=== PATIENT | male | born 1980 | race Caucasian/White ===

== ENCOUNTER 2017-10-18 22:05 | Emergency (ER) | payer SELFPAY ==
[~2017-10-18 22:05] MED LIST: ACE325 PO; ALB0.5 INH; ALB17R INH; ALBU2.5V36 INH; BACDS PO; CEP500 PO; CETI10CA8 PO; CIPR-214 PO; CLI150 PO; CLIN300C99 PO; CODE118S5 PO; CYC10 PO; DIAZ-1 PO; FAMO-67 PO; FLUINH INH; FLUT12HF2 IH; FLUT1DIS28 IH; HYDR-318 PO; HYDR-4308 PO; HYDR-4309 PO; IBU800 PO; IBUP200C71 PO; IBUP50TA PO; IBUP800T37 PO; LOR5 PO; LOR5/325 PO; METH4TAB66 PO; MULT-1335 PO; PER PO; PHEN200T32 PO; PRE20 PO; PRED20TA6 PO; SULF-198 PO; TIO18R INH; TRAM-420 PO; [UNRECOGNIZED DRUG - CODE] PO
--- NOTE | 2017-10-18 22:09 | ER Report ---
History and Physical Time Seen By MD: 22:09 HPI/ROS CHIEF COMPLAINT: Requesting detox HISTORY OF PRESENT ILLNESS: 37-year-old male with a history of alcoholism. Patient states she's been drinking a 5th a day for several weeks. Tonight he presents voluntarily requesting detox. He admits to. I'll put her and blackouts. Patient reports last alcohol ingestion was 2 hours prior to arrival. Patient reports she's been drinking heavily for 5 years. Patient denies suicidal ideation. Patient reports a history of asthma REVIEW OF SYSTEMS: Respiratory: No cough, no dyspnea. Cardiovascular: No chest pain, no palpitations. Gastrointestinal: No vomiting, no abdominal pain. Musculoskeletal: No back pain. Allergies: Coded Allergies: Penicillins (Verified Allergy, Mild, 10/18/17) Home Meds Reported Medications Montelukast Sodium (SINGULAIR) 10 Mg Tablet, 1 TAB PO QDAY, TAB 10/18/17 Albuterol Sulfate 0.083% (ALBUTEROL SULFATE 0.083%) 2.5 Mg/3 Ml Vial.neb, 2.5 MG INH 4-5X/DAY, INH 10/31/15 Fluticasone/Salmeterol (ADVAIR HFA 115-21 MCG INHALER) 12 Gm Hfa.aer.ad, 12 GM IH PRN 10/31/15 Albuterol (Proventil Inhaler) 17 Gm Inh, 0 INH QID Y, 0 Refills 1-2 PUFFS 04/02/08 Discontinued Reported Medications Cetirizine Hcl (ZYRTEC) 10 Mg Capsule, 10 MG PO QDAY, CAPSULE 10/19/15 Past Medical/Surgical History Asthma, bilateral subdural status post craniotomy Reviewed Nurses Notes: Yes Old Medical Records Reviewed: Yes Hx Smoking: Yes (SMOKES 1/2 PPD FOR 20 YEARS) Smoking Status: Current: Every Day Smoker Exposure to Second Hand Smoke?: Yes Hx Substance Use Disorder: Yes (pot, meth occ) Hx Alcohol Use: Yes (" not that much") Constitutional Vital Sign - Last 24 Hours 10/18/17 10/18/17 10/18/17 10/18/17 22:12 22:20 22:23 22:30 Temp 97.8 Pulse 70 ??? Resp 16 B/P (MAP) 137/98 131/86 (101) Pulse Ox 90 91 O2 Delivery Room Air O2 Flow Rate 2.0 10/18/17 10/18/17 10/18/17 10/18/17 22:35 22:43 22:50 23:00 Pulse 71 60 68 Resp 16 B/P (MAP) 118/79 (92) Pulse Ox 86 96 10/18/17 10/18/17 23:05 23:20 Pulse 75 64 Pulse Ox 96 96 Physical Exam General Appearance: The patient is alert, has no immediate need for airway protection and no current signs of toxicity. Eyes: Pupils equal and round no injection. Respiratory: Chest is non tender, lungs are clear to auscultation. Cardiac: regular rate and rhythm Gastrointestinal: Abdomen is soft and non tender, no masses, bowel sounds normal. Musculoskeletal: Neck: Neck is supple and non tender. Extremities have full range of motion and are non tender. Skin: No rashes or lesions. DIFFERENTIAL DIAGNOSIS: After history and physical exam differential diagnosis was considered for depression including functional and major depression, situational depression, medication side effect, drugs and alcohol abuse. Medical Decision Making Data Points Result Diagram: 10/18/173 10/18/17 222 Laboratory Hematology Test 10/18/17 22:09 10/18/17 22:23 Urine Color Yellow Urine Clarity Clear Urine pH 6.0 pH (4.8-9.5) Urine Specific [place] 1.021 Urine Protein 30 mg/dL (NEGATIVE) Urine Glucose (UA) Negative mg/dL (NEGATIVE) Urine Ketones Negative mg/dL (NEGATIVE) Urine Blood Negative (NEGATIVE) Urine Nitrite Negative (NEGATIVE) Urine Bilirubin Negative (NEGATIVE) Urine Urobilinogen 4.0 mg/dL (0.2-1.9) Urine Leukocyte Esterase Negative (NEGATIVE) Urine RBC None /HPF (0-2/HPF) Urine WBC 2 /HPF (0-5/HPF) Urine Squamous Epithelial Cells None /LPF (</=FEW) Urine Bacteria Negative /HPF (NONE-FEW) Urine Mucus Few /HPF (NONE-FEW) Urine Opiates Screen Negative Urine Barbiturates Screen Negative Ur Tricyclic Antidepressants Screen Negative Urine Phencyclidine Screen Negative Urine Amphetamines Screen Negative Urine Benzodiazepines Screen Negative Urine Cocaine Screen Negative Urine Cannabinoids Screen Positive Red Blood Count 5.14 M/uL (4.00-5.60) Mean Corpuscular Volume 91.0 fL (80.0-96.0) Mean Corpuscular Hemoglobin 32.1 pg (26.0-33.0) Mean Corpuscular Hemoglobin Concent 35.3 g/dL (32.0-36.0) Red Cell Distribution Width 14.2 % (11.5-14.5) Mean Platelet Volume 8.1 fL (7.2-11.1) Neutrophils (%) (Auto) 46.6 % (39.4-72.5) Lymphocytes (%) (Auto) 39.4 % (17.6-49.6) Monocytes (%) (Auto) 8.2 % (4.1-12.4) Eosinophils (%) (Auto) 5.2 % (0.4-6.7) Basophils (%) (Auto) 0.6 % (0.3-1.4) Nucleated RBC Relative Count (auto) 0.1 /100WBC Neutrophils # (Auto) 3.9 K/uL (2.0-7.4) Lymphocytes # (Auto) 3.3 K/uL (1.3-3.6) Monocytes # (Auto) 0.7 K/uL (0.3-1.0) Eosinophils # (Auto) 0.4 K/uL (0.0-0.5) Basophils # (Auto) 0.1 K/uL (0.0-0.1) Nucleated RBC Absolute Count (auto) 0.01 K/uL Sodium Level 144 mmol/L (137-145) Potassium Level 3.7 mmol/L (3.5-5.0) Chloride Level 103 mmol/L (98-107) Carbon Dioxide Level 23 mmol/L (22-30) Blood Urea Nitrogen 11 mg/dl (9-21) Creatinine 0.80 mg/dl (0.66-1.25) Glomerular Filtration Rate Calc > 60.0 Random Glucose 84 mg/dl (75-110) Calcium Level 8.9 mg/dl (8.4-10.2) Magnesium Level 2.0 mg/dl (1.7-2.2) Total Bilirubin 0.9 mg/dl (0.2-1.3) Aspartate Amino Transf (AST/SGOT) 123 U/L (0-35) Alanine Aminotransferase (ALT/SGPT) 87 U/L (0-56) Alkaline Phosphatase 60 U/L (0-126) Total Protein 8.1 g/dl (6.3-8.2) Albumin 4.8 g/dl (3.5-5.0) Salicylates Level < 10 mg/L Salicylate Last Dose Date unk Acetaminophen Level < 10 ug/ml Serum Alcohol 288 mg/dl Chemistry Test 10/18/17 22:09 10/18/17 22:23 Urine Color Yellow Urine Clarity Clear Urine pH 6.0 pH (4.8-9.5) Urine Specific [place] 1.021 Urine Protein 30 mg/dL (NEGATIVE) Urine Glucose (UA) Negative mg/dL (NEGATIVE) Urine Ketones Negative mg/dL (NEGATIVE) Urine Blood Negative (NEGATIVE) Urine Nitrite Negative (NEGATIVE) Urine Bilirubin Negative (NEGATIVE) Urine Urobilinogen 4.0 mg/dL (0.2-1.9) Urine Leukocyte Esterase Negative (NEGATIVE) Urine RBC None /HPF (0-2/HPF) Urine WBC 2 /HPF (0-5/HPF) Urine Squamous Epithelial Cells None /LPF (</=FEW) Urine Bacteria Negative /HPF (NONE-FEW) Urine Mucus Few /HPF (NONE-FEW) Urine Opiates Screen Negative Urine Barbiturates Screen Negative Ur Tricyclic Antidepressants Screen Negative Urine Phencyclidine Screen Negative Urine Amphetamines Screen Negative Urine Benzodiazepines Screen Negative Urine Cocaine Screen Negative Urine Cannabinoids Screen Positive White Blood Count 8.3 k/uL (4.5-11.0) Red Blood Count 5.14 M/uL (4.00-5.60) Hemoglobin 16.5 g/dL (14.0-18.0) Hematocrit 46.8 % (42.0-52.0) Mean Corpuscular Volume 91.0 fL (80.0-96.0) Mean Corpuscular Hemoglobin 32.1 pg (26.0-33.0) Mean Corpuscular Hemoglobin Concent 35.3 g/dL (32.0-36.0) Red Cell Distribution Width 14.2 % (11.5-14.5) Platelet Count 192 K/uL (150-450) Mean Platelet Volume 8.1 fL (7.2-11.1) Neutrophils (%) (Auto) 46.6 % (39.4-72.5) Lymphocytes (%) (Auto) 39.4 % (17.6-49.6) Monocytes (%) (Auto) 8.2 % (4.1-12.4) Eosinophils (%) (Auto) 5.2 % (0.4-6.7) Basophils (%) (Auto) 0.6 % (0.3-1.4) Nucleated RBC Relative Count (auto) 0.1 /100WBC Neutrophils # (Auto) 3.9 K/uL (2.0-7.4) Lymphocytes # (Auto) 3.3 K/uL (1.3-3.6) Monocytes # (Auto) 0.7 K/uL (0.3-1.0) Eosinophils # (Auto) 0.4 K/uL (0.0-0.5) Basophils # (Auto) 0.1 K/uL (0.0-0.1) Nucleated RBC Absolute Count (auto) 0.01 K/uL Glomerular Filtration Rate Calc > 60.0 Calcium Level 8.9 mg/dl (8.4-10.2) Magnesium Level 2.0 mg/dl (1.7-2.2) Total Bilirubin 0.9 mg/dl (0.2-1.3) Aspartate Amino Transf (AST/SGOT) 123 U/L (0-35) Alanine Aminotransferase (ALT/SGPT) 87 U/L (0-56) Alkaline Phosphatase 60 U/L (0-126) Total Protein 8.1 g/dl (6.3-8.2) Albumin 4.8 g/dl (3.5-5.0) Salicylates Level < 10 mg/L Salicylate Last Dose Date unk Acetaminophen Level < 10 ug/ml Serum Alcohol 288 mg/dl Toxicology Test 10/18/17 22:09 10/18/17 22:23 Urine Opiates Screen Negative Urine Barbiturates Screen Negative Ur Tricyclic Antidepressants Screen Negative Urine Phencyclidine Screen Negative Urine Amphetamines Screen Negative Urine Benzodiazepines Screen Negative Urine Cocaine Screen Negative Urine Cannabinoids Screen Positive Salicylates Level < 10 mg/L Salicylate Last Dose Date unk Acetaminophen Level < 10 ug/ml Serum Alcohol 288 mg/dl Urinalysis Test 10/18/17 22:09 Urine Color Yellow Urine Clarity Clear Urine pH 6.0 pH (4.8-9.5) Urine Specific [place] 1.021 Urine Protein 30 mg/dL (NEGATIVE) Urine Glucose (UA) Negative mg/dL (NEGATIVE) Urine Ketones Negative mg/dL (NEGATIVE) Urine Blood Negative (NEGATIVE) Urine Nitrite Negative (NEGATIVE) Urine Bilirubin Negative (NEGATIVE) Urine Urobilinogen 4.0 mg/dL (0.2-1.9) Urine Leukocyte Esterase Negative (NEGATIVE) Urine RBC None /HPF (0-2/HPF) Urine WBC 2 /HPF (0-5/HPF) Urine Squamous Epithelial Cells None /LPF (</=FEW) Urine Bacteria Negative /HPF (NONE-FEW) Urine Mucus Few /HPF (NONE-FEW) ED Course/Re-evaluation Clinical Indication for ER IV: Hydration, IV Access ED Course Patient was admitted to an examination room. H&P was done. The differential diagnoses was considered. On conical examination, patient appears grossly intoxicated. He is requesting detox. Patient states she's been drinking heavily for 5 years. He drinks approximately a 5th a day. Diagnostic studies show mild elevation of LFTs. His blood alcohol level 288. Case was discussed with behavioral health services information assurance. 10/18/2017 11:04:01 pm case discussed with Dr. Ponce psychiatrist on-call, who accepts the patient for admission to detox voluntarily Decision to Disposition Date: Oct 18, 2017 Decision to Disposition Time: 22:55 Depart Departure Latest Vital Signs Vital Signs Date Time Temp Pulse Resp B/P (MAP) Pulse Ox O2 Delivery O2 Flow Rate FiO2 10/18/17 23:20 64 96 10/18/17 23:00 118/79 (92) 10/18/17 22:43 16 10/18/17 22:23 2.0 10/18/17 22:12 97.8 Room Air Impression: Primary Impression: Alcohol dependence Additional Impressions: Asthma History of subdural hematoma Abnormal LFTs Condition: Improved Disposition: HOME OR SELF-CARE Problem Qualifiers Primary Impression: Alcohol dependence Substance use status: uncomplicated Qualified Codes: F10.20 - Alcohol dependence, uncomplicated Additional Impressions: Asthma Asthma severity: mild Asthma persistence: intermittent Asthma complication type: with acute exacerbation Qualified Codes: J45.21 - Mild intermittent asthma with (acute) exacerbation CARA FISHMAN DO Oct 18, 2017 22:09
[2017-10-18] MEDS ORDERED: MONT10TA PO (22:18)
[2017-10-18] MEDS ORDERED: THIAMINE HCL(*) 200 MG/2 ML IN 100 MG, FOLIC ACID(*) 50 MG/10 ML INJ 1 MG, MULTIVITAMIN... IV ONE (22:18)
[2017-10-18 22:30] LABS: PLATELET COUNT, AUTOMATED 192 K/uL (150-450)
[2017-10-18] MEDS ORDERED: ALBUTEROL/IPRATROPIUM 3 ML NEB NEB ONE (22:35)
[2017-10-18 23:00] VITALS: BP 118/79
== END 2017-10-18 23:28 | disposition home or self-care (01) ==
LOC: ER 22:13
DX: F10.20 Alcohol dependence, uncomplicated (principal); J45.21 Mild intermittent asthma with (acute) exacerbation
CPT/HCPCS: 80305; 80320; 80329; 81001; 83735; 84443; 85025; 94640; 96365; 99283; J3411; J3475; J7030; J7620; 82040; 82247; 82310; 82374; 82435; 82565; 82947; 84075; 84132; 84155; 84295; 84450; 84460; 84520

== ENCOUNTER 2017-10-18 23:24 | Inpatient (IN) | payer SELFPAY ==
[~2017-10-18] VITALS: Ht 167.6 cm; Wt 77.1 kg
[2017-10-18 23:10] VITALS: BP 122/85
[~2017-10-18 23:24] MED LIST changes: +MONT10TA PO
[2017-10-18 23:35] VITALS: BP 122/85
[2017-10-19] MEDS ORDERED: NICOTINE CARTRIDGE 1 EA PO PRN (00:10)
[2017-10-19] MEDS ORDERED: MAG HYD/AL HYD/SIMETH 30ML UDC PO PRN (00:10)
[2017-10-19] MEDS ORDERED: ALBUTEROL SULFATE 90 MCG/ACT 8.5 GM HNH INH PRN (00:15)
[2017-10-19] MEDS: DIAZEPAM 10 MG TAB PO PRN ×7 (00:30→20:42)
[2017-10-19] MEDS ORDERED: ADVAIR PO SCH (06:00)
[2017-10-19 07:50] VITALS: BP 113/74
[2017-10-19] MEDS: MONTELUKAST SODIUM 10 MG TAB PO SCH (08:19)
[2017-10-19] MEDS: MULTIVITAMINS TAB PO SCH (08:19)
[2017-10-19] MEDS: THIAMINE HCL 100 MG TAB PO SCH (08:19)
[2017-10-19] MEDS: ALBUTEROL 8 GM INHALER INH PRN ×2 (11:08→19:58)
[2017-10-19 11:53] VITALS: BP 138/95
[2017-10-19 14:45] VITALS: BP 122/98
--- NOTE | 2017-10-19 15:20 | SCHAAF H&P ---
DATE OF ADMISSION: October 18, 2017 DATE OF EVALUATION Patient was seen for note concerning this dictation in the morning of October 19, 2017, approximately 1000 hours. ATTENDING PHYSICIAN Aaron Ponce MD PRESENTING PROBLEM, CHIEF COMPLAINT "I want help with alcoholism." HISTORY OF PRESENT ILLNESS This is very pleasant 37-year-old male who presented to the emergency room on a voluntary basis, stating that he wants to get off of all alcohol. Patient reports he had been drinking a fifth at least a day for the last few weeks, and overall alcohol consumption continues to increase. Patient reports the fifth of hard liquor is in addition to "beers" that patient is drinking. Patient reports no specific stressors in his life other than frustration with ongoing alcohol use. Patient does report some financial stress, but he says this is even longstanding in nature and not acutely different. Patient denies any other symptoms of psychiatric concern at this time outside of the frustration with alcohol use disorder. MENTAL HEALTH HISTORY The patient reports that he has been in [facility] in the past and reported at one point during interview multiple residential rehabs, including "jail". Patient denies being on a unit for acute detox such as this, and patient has reported following up at [facility] in the past, although he is not now. Patient is not currently attending and does not have a sponsor. Patient denies any significant depressive thoughts that ever related in suicidal thoughts in his life. FAMILY PSYCHIATRIC HISTORY When asked who suffers from alcohol within the genetic family members, patient reports "my whole family" on both sides. Patient reports depression possibly on father's side. No suicides are known in the family history. PAST MEDICAL HISTORY Significant for some prematurity. Patient has ongoing asthma and likely bronchitis currently at time of admission. Patient has some environmental allergies. MEDICATIONS Not on any other medications other than inhaler for asthma symptoms. SOCIAL HISTORY The patient was born in [place], raised in [place]. Parents at the time of his . They when he was approximately age [age]. Siblings : Patient has one brother, who he reports is doing well. Patient did not graduate high school, obtained a GED, did not obtain any college. Patient reports no service. He has never . He has one daughter who lives in [place]. Patient reports living in [place], where he states he takes care of his mother. 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 Patient currently living with his mother here in [place]. LEGAL HISTORY Patient reports being in jail for marijuana distribution charge resulting in a felony of six years. Patient states he is currently not under any legal bounds. SUBSTANCE ABUSE HISTORY Patient smoking a half a pack of cigarettes currently daily. Patient reports being a heavy methamphetamine user in the past, including IV injection. Has been able to stop that for quite some time. Patient reports continued cannabis use, appears moderate in nature, and patient reports ongoing significant problems with alcoholism. PHYSICAL EXAMINATION Please see emergency room note. Notable for cooperative 37-year-old male, interacting well. Vital signs at the time of admission: Temperature 97.8, pulse 70, respiratory rate 16, blood pressure 137/98 and pulse oximetry 90on room air. Patient in no acute medical distress. LABORATORY DATA CBC notably unremarkable and chemistry panel notable for AST 123 and an ALT of 87, TSH 1.36. Urinalysis: Urobilinogen present with some protein present. Toxicology screen positive for cannabis and serum alcohol level of 288 upon admission. MENTAL STATUS EXAMINATION GENERAL APPEARANCE, BEHAVIOR AND ATTITUDE: This is a polite, cooperative 37- year-old male interacting well, making good eye contact. No bizarre mannerisms or tics. Some psychomotor agitation related to alcohol withdrawal, which is currently being treated during interview. Patient non-tearful. SPEECH: Within normal limits. Regular rate, rhythm, volume and tone. MOOD: Described as some frustration over alcoholism. AFFECT: Minimally constricted and mood-congruent. THOUGHT PROCESSES: Logical, goal-directed, no loose associations or flight of ideas. THOUGHT CONTENT: Free of auditory or visual hallucinations, ideas of reference , thought broadcastings, delusions, obsessions or compulsions. No suicidal or homicidal ideations. SENSORIUM: Clear. COGNITION: Alert and oriented to person, place, time and situation. MEMORY: Immediate, recent and remote estimated intact. INTELLIGENCE: Average, based on interview. INSIGHT AND JUDGMENT: Considered grossly intact. Patient presenting voluntarily for help with alcohol use disorder. ASSESSMENT This is a pleasant 37-year-old male voicing that he needs help withdrawing from alcohol. It is not likely patient will attend rehab program once alcohol withdrawal is complete. Efforts will be made to put in place outpatient services to ensure sobriety upon departure. Will treat alcohol withdrawal to completion with diazepam. DIAGNOSES PER DSM-V Alcohol use disorder, severe. Alcohol withdrawal. Alcohol intoxication at time of admission. Social stressors related to alcohol use disorder. PLAN 1. Admit to the unit. 2. Necessary precautions will be implemented. 3. The patient will participate in individual and group therapy. 4. Medications will be administered and titrated accordingly. 5. Collateral information to be obtained as necessary. 6. Estimated length of stay three to five days. MTDD
[2017-10-19 18:10] VITALS: BP 124/70
[2017-10-19 20:18] VITALS: BP 120/75
[2017-10-20 03:04] VITALS: BP 112/79
[2017-10-20 05:59] VITALS: BP 121/92
[2017-10-20] MEDS: THIAMINE HCL 100 MG TAB PO SCH (08:44)
[2017-10-20] MEDS: MULTIVITAMINS TAB PO SCH (08:44)
[2017-10-20] MEDS: MONTELUKAST SODIUM 10 MG TAB PO SCH (08:44)
[2017-10-20] MEDS ORDERED: FOLIC ACID 1 MG TAB PO SCH (09:00)
[2017-10-20] MEDS ORDERED: ALBUTEROL 8 GM INHALER INH PRN (09:20)
[2017-10-20 10:00] VITALS: BP 128/86
--- NOTE | 2017-10-20 10:40 | BHS Progress Note ---
[facility] - Subjective Progress Notes Subjective Patient remains calm and pleasant on the unit, noted to be taking an active role in his treatment. Patient continues in alcohol withdrawal, with some low oxygen saturations during the night. Will have overnight pulse ox tonight. Appetite good, mood good, will encourage abstinance from alcohol and cannabis, and solidify outpatient plans. Possible discharge tomorrow Afternoon. Suicidal Ideation: None Homicidal Ideation: None [facility] - Objective Physical Exam Vital Signs Vital Signs Date Time Temp Pulse Resp B/P (MAP) Pulse Ox O2 Delivery O2 Flow Rate FiO2 10/20/17 05:59 97.3 52 15 121/92 (102) 96 Nasal Cannula 1.0 Muscle Strength and Tone: WNL Gait and Station: Steady [facility] Medications Reviewed: Side Effects, Benefits of Medication, Risks Allergies Reviewed: Yes Mental Status Exam General Appearance: Casual, Well Groomed, Good Eye Contact, Cooperative, Polite , Good Interaction, No Unkept, No Tearful, No Psychomotor Agitation, No Psychomotor Retardation, No Bizarre Mannerisms, No Tics Speech: Clear, Spontaneous, Normal Rate, Normal Rhythm, Normal Volume, Normal Tone, No Slurred, No Garbled, No Rambling, No Inappropriate Mood: Euthymic Affect: Full and Appropriate Thought Process: Organized, Logical, Goal Directed, No Loose Associations, No Flight of Ideas Thought Content: No Suicidal Ideation, No Homicidal Ideation, No Delusions, No Auditory Halllucinations, No Visual Hallucinations, No Thought Broadcasting, No Ideas of Reference, No Obsessions, No Compulsions Sensorium: Clear Cognition: Alert & Oriented-Person, Alert & Oriented-Place, Alert & Oriented- Time, [id number] Memory: Immediate, Recent, Remote Intelligence: Average Insight Judgment: Fair (improving in absence of alcohol and cannabis) [facility] Assessment and Plan [id number] Encounter Date: Oct 20, 2017 [id number] Encounter Time: 10:00 [facility] Plan: Necessary Precautions, Individual/Group Therapy, Admin/Titrate Meds, Educate Patient Tobacco Medications: Started Multpiple Antipsychotics Used: No Problems: (1) Alcohol withdrawal Status: Acute (2) Alcohol use disorder, severe, in controlled environment Status: Chronic (3) Cannabis use disorder, severe, dependence Status: Chronic Condition 1. continue treatment of alcohol withdrawal. 2. education regarding substance use. 3. overnight pulse ox monitoring. tonight. 4. solidify outpatient plans for possible discharge tomorrow afternoon. Problem Qualifiers (1) Alcohol withdrawal: Complication of substance-induced condition: uncomplicated Qualified Codes: F10.230 - Alcohol dependence with withdrawal, uncomplicated DEQUAN ANTON MD Oct 20, 2017 10:40
[2017-10-20] MEDS ORDERED: LOPERAMIDE HCL 2 MG CAP PO PRN (10:45)
[2017-10-20] MEDS ORDERED: LOPERAMIDE HCL 2 MG CAP PO ONE (10:45)
[2017-10-20] MEDS ORDERED: FOLI-68 PO (11:39)
[2017-10-20] MEDS ORDERED: MULT-1379 PO (11:40)
[2017-10-20] MEDS ORDERED: THIA100T62 PO (11:40)
--- NOTE | 2017-10-21 16:45 | DISCHARGE SUMMARY ---
Patient was seen at approximately 1200 hours on October 20, 2017 for note concerning this dictation. FINAL DIAGNOSES PER DSM-V Alcohol withdrawal, not considered complete, patient discharging against medical advice. Alcohol use disorder severe. Cannabis use disorder severe. Social stressors related to alcohol and cannabis use. REASON FOR ADMISSION This is a 37-year-old male who initially presented voluntarily for alcohol detoxification help to the emergency room. Patient admitted without incident. Patient very calm, cooperative throughout his stay. Patient appearing at times to take an active role in his treatment, although at other times patient resistant to goals set forth by therapist on the unit, and patient avoiding them. Patient then deciding to discharge against medical advice, even though alcohol withdrawal was not considered complete. Patient was strongly encouraged to stay for another 24 hours to likely complete alcohol withdrawal. Patient refused. Patient remaining calm and cooperative, however, with discharge process and gave an indication of a full understanding of the risk associated with an against medical advice discharge. Patient not indicating any homicidal or suicidal thoughts. PHYSICAL EXAMINATION GENERAL: Please see emergency room note. VITAL SIGNS: At the time of admission, temperature 97.8, pulse 70, respiratory rate 16, blood pressure 137/98, pulse oximetry 90 on room air. Vital signs at the time of discharge, temperature 97.9, pulse 80, respiratory rate 16, blood pressure 128/86, pulse oximetry 95 on room air. LABORATORY DATA At the time of admission, CBC unremarkable. CMP notable for AST elevated at 123 , ALT elevated at 87, TSH 1.36. Urinalysis notable for urobilinogen and urine protein present, and toxicology screen positive for cannabis with a serum alcohol level of 288 upon admission. MENTAL STATUS EXAMINATION AT THE TIME OF DISCHARGE AGAINST MEDICAL ADVICE GENERAL APPEARANCE, BEHAVIOR AND ATTITUDE: This is a polite, cooperative 37- year-old male remaining cooperative while discharging against medical advice. No bizarre mannerisms or tics. No periods of tearfulness. Making good eye contact. Alert and oriented. SPEECH: Within normal limits, regular rate, rhythm, volume and tone. MOOD: Described as good. AFFECT: Full overall and mood congruent. THOUGHT PROCESSES: Goal directed. No loose associations or flight of ideas. Patient not logical in that he is wanting to discharge against medical advice. THOUGHT CONTENT: Free of auditory or visual hallucinations, ideas of reference , thought broadcastings, delusions, obsessions, compulsions. Patient adamantly denying suicidal or homicidal ideation. SENSORIUM: Clear. COGNITION: Alert and oriented to person, place, time and situation. MEMORY: Immediate, recent and remote estimated intact. INTELLIGENCE: Average to potentially slightly below average based on interview. INSIGHT AND JUDGMENT: Limited. Patient suffers from long-standing alcohol and cannabis addiction, and was strongly encouraged to not discharge against medical advice. RESULTS OF TESTING IMAGING: None. LABORATORY DATA: See above. CONSULTATIONS: None. TREATMENT Patient received medications, participated in individual and group therapy. HOSPITAL COURSE Patient was having alcohol withdrawal treated with diazepam per [facility] protocol. Patient was overall cooperative throughout his stay and at times seemingly taking an active role in his treatment. However, patient's alcohol withdrawal was not considered complete when patient decided to discharge against medical advice. CONDITION OF PATIENT ON DISCHARGE Stable. Considered minimal risk to himself or others in the absence of alcohol or cannabis. However, ongoing withdrawal and a high probability of relapse could be very concerning in this patient who has been treated with diazepam and its long half life on the unit. DISPOSITION Patient discharged to home. Patient was encouraged to follow up with AA, obtain a sponsor and not return to drinking. Patient also strongly encouraged to abstain from all alcohol and cannabis, was given the crisis line should symptoms return. Patient could continue home medications which included Proventil inhaler and Singulair, as well as Advair inhaler. Patient was encouraged to stop using nicotine as well and was encouraged to use over-the- counter nicotine replacement. Crisis line was given should symptoms return. Risks versus benefits of above against medical advice discharge were discussed. Patient indicated a full understanding of the risks of ongoing alcohol withdrawal coupled with the risk of relapse on top of long acting diazepam with respiratory depression. Patient also was noted on the unit to have some lower oxygen saturations in the 80s nocturnally and patient would get this checked out with primary care provider. JAXON
== END 2017-10-20 12:10 | disposition home or self-care (01) | DRG 897 ==
LOC: BHS 23:24
PROVIDERS: ADMIT Psychiatry & Neurology Psychiatry; ATTEND Psychiatry & Neurology Psychiatry
DX: F10.230 Alcohol dependence with withdrawal, uncomplicated (principal); F12.20 Cannabis dependence, uncomplicated; J45.909 Unspecified asthma, uncomplicated; F17.210 Nicotine dependence, cigarettes, uncomplicated; Y90.8 Blood alcohol level of 240 mg/100 ml or more; Z53.29 Procedure and treatment not carried out because of patient's decision for other reasons; Z81.1 Family history of alcohol abuse and dependence; Z81.8 Family history of other mental and behavioral disorders
CPT/HCPCS: J3535

== ENCOUNTER 2018-05-19 13:31 | Emergency (ER) | payer SELFPAY ==
[~2018-05-19 13:31] MED LIST changes: +FOLI-68 PO; -HYDR-4308 PO; -HYDR-4309 PO; +HYDR-653 PO; +HYDR-654 PO; +IBUP-136 PO; -IBUP200C71 PO; +MULT-1379 PO; +THIA100T62 PO
[2018-05-19 13:37] VITALS: BP 121/96
--- NOTE | 2018-05-19 13:41 | ER Report ---
History and Physical Time Seen By MD: 13:41 HPI/ROS CHIEF COMPLAINT: Cough HISTORY OF PRESENT ILLNESS: This is a 37-year-old male who presents to the emergency department for a cough. Patient states that he's had a persistent cough as well as asthma exacerbation, he has tried following up with the [facility] this week to get his albuterol refilled Christiano he has been unsuccessful. Patient also states that he has been mixing tapwater with his albuterol as he was getting low on his nebulized albuterol. He's had a sore throat, nonproductive cough. No fevers or chills. No nausea or vomiting. No headaches. No meningismus. REVIEW OF SYSTEMS: Respiratory: As above. Cardiovascular: No chest pain, no palpitations. Gastrointestinal: No vomiting, no abdominal pain. Musculoskeletal: No back pain. Allergies: Coded Allergies: Penicillins (Verified Allergy, Mild, 05/19/18) Home Meds Active Scripts Albuterol Sulfate 0.083% (ALBUTEROL SULFATE 0.083%) 2.5 Mg/3 Ml Vial.neb, 2.5 MG INH Q4-6H PRN for SHORTNESS OF BREATH, #20 VIAL Prov:TIAGO FARRIS Bill PCT-BC 05/19/18 Reported Medications Thiamine Hcl (THIAMINE HCL) 100 Mg Tablet, 100 MG PO QDAY 10/20/17 Multivits,Th W-Fe,Other Min (THERA-M) 1 Each Tablet, 1 EACH PO QDAY 10/20/17 Folic Acid (FOLIC ACID) 1 Mg Tablet, 1 MG PO QDAY, TAB 10/20/17 Montelukast Sodium (SINGULAIR) 10 Mg Tablet, 1 TAB PO QDAY, TAB 10/18/17 Albuterol Sulfate 0.083% (ALBUTEROL SULFATE 0.083%) 2.5 Mg/3 Ml Vial.neb, 2.5 MG INH 4-5X/DAY, INH 10/31/15 Fluticasone/Salmeterol (ADVAIR HFA 115-21 MCG INHALER) 12 Gm Hfa.aer.ad, 12 GM IH PRN 10/31/15 Albuterol (Proventil Inhaler) 17 Gm Inh, 0 INH QID PRN, 0 Refills 1-2 PUFFS 12/9/08 Past Medical/Surgical History The patient has a past medical and surgical history of brain bleed, born premat ure with underdeveloped lungs, 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 Smokes cigarettes and marijuana. Reviewed Nurses Notes: Yes Hx Smoking: Yes Smoking Status: Current: Some Days Smoker Exposure to Second Hand Smoke?: Yes Hx Substance Use Disorder: Yes (pot, meth occ) Hx Alcohol Use: Yes (" not that much") Constitutional Vital Sign - Last 24 Hours 05/19/18 05/19/18 05/19/18 13:37 13:59 13:59 Temp 97.8 Pulse 92 75 Resp 18 16 B/P (MAP) 121/96 Pulse Ox 87 93 O2 Delivery Room Air Nasal Cannula O2 Flow Rate 3.0 Physical Exam General Appearance: The patient is alert, has no immediate need for airway protection and no current signs of toxicity. Eyes: Pupils equal and round no injection. Respiratory: Coarse throughout, end expiratory wheezes in all lion. Cardiac: regular rate and rhythm, no murmurs, clicks or rubs. Gastrointestinal: Abdomen is soft and non tender, no masses, bowel sounds normal. Musculoskeletal: Neck: Neck is supple and non tender. Extremities have full range of motion and are non tender. Skin: No rashes or lesions. DIFFERENTIAL DIAGNOSIS: After history and physical exam differential diagnosis was considered for strep throat, pneumonia, viral syndrome, asthma exacerbation. Medical Decision Making Data Points Laboratory Hematology Test 05/19/18 13:54 Group A Streptococcus (PCR) Negative (NEGATIVE) Chemistry Test 05/19/18 13:54 Group A Streptococcus (PCR) Negative (NEGATIVE) ED Course/Re-evaluation ED Course The patient was admitted to room. A history and physical were obtained. Differential diagnoses were considered. Patient declined an x-ray or laboratory studies. He was negative for strep throat. Was given a DuoNeb with significant relief of his symptoms. A prescription for albuterol was sent to the patient's pharmacy. Patient [id number] with the [facility] next week for reevaluation and another refill on his albuterol medications and they will discuss the use of steroids, patient was reluctant to start on steroids at this time. Patient had no other questions or concerns at this time and was discharged home he was in agreement with this plan of care. Decision to Disposition Date: May 19, 2018 Decision to Disposition Time: 14:32 Depart Departure Latest Vital Signs Vital Signs Date Time Temp Pulse Resp B/P (MAP) Pulse Ox O2 Delivery O2 Flow Rate FiO2 05/19/18 13:59 93 Nasal Cannula 3.0 05/19/18 13:59 75 16 05/19/18 13:37 97.8 121/96 Impression: Primary Impression: Cough Additional Impressions: Sore throat History of asthma Condition: Improved Disposition: HOME OR SELF-CARE New Scripts Albuterol Sulfate 0.083% (ALBUTEROL SULFATE 0.083%) 2.5 Mg/3 Ml Vial.neb 2.5 MG INH Q4-6H PRN for SHORTNESS OF BREATH, #20 VIAL Prov: TIAGO FARRIS 05/19/18 Patient Instructions: Acute Cough (GEN), Asthma (ED) Additional Instructions: Continue to work on smoking cessation. Drink plenty of water. Get plenty of rest. Do not mix tapwater with your albuterol nebulizer. Follow-up with the [facility] as scheduled. Return to the emergency department for any other concerns or worsening symptoms. Return to the emergency department if you change your mind about a chest x-ray. Problem Qualifiers TIAGO FARRISBC May 19, 2018 13:41
[2018-05-19] MEDS ORDERED: ALBU2.5V36 INH (13:55)
[2018-05-19] MEDS ORDERED: ALBUTEROL/IPRATROPIUM 3 ML NEB NEB ONE (13:55)
== END 2018-05-19 14:40 | disposition home or self-care (01) ==
LOC: ER 13:49
DX: J02.9 Acute pharyngitis, unspecified (principal); R05 Cough; J45.909 Unspecified asthma, uncomplicated
CPT/HCPCS: 87653; 94640; 99283; J7620